=== PATIENT | female | born 1985 | race Caucasian/White ===

== ENCOUNTER 2018-09-08 16:18 | Emergency (ER) | payer OTHER, BC ==
[2018-09-08 16:29] VITALS: BP 102/67
--- NOTE | 2018-09-08 17:12 | EDM.PDOC ---
ED HPI GENERAL MEDICAL PROBLEM - General Chief Complaint: ENT Problem Stated Complaint: DENTAL PAIN Time Seen by Provider: 09/08/18 16:24 Source of Information: Reports: Patient History Limitations: Reports: No Limitations - History of Present Illness INITIAL COMMENTS - FREE TEXT/NARRATIVE: The patient presents with dental pain. This started last night. She was eating [employer] and there was a hard boneless wing that broke her tooth in the left upper jaw. She has sever pain but no fever. She has a history of other teeth being bad but not this one. She does not have a dentist here in town. Onset: Sudden Duration: Day(s): (Last night) Location: Reports: Face Quality: Reports: Sharp Severity: Severe Worsens with: Reports: None Associated Symptoms: Reports: No Other Symptoms Left Upper Tooth/Teeth Pain Score (Numeric/FACES): 9 - Related Data Allergies Allergy/AdvReac Type Severity Reaction Status Date / Time No Known Allergies Allergy Verified 09/08/18 16:24 Home Meds: Home Meds ALPRAZolam [Xanax] 0.5 mg PO DAILY PRN 04/13/18 [History] Escitalopram [Lexapro] 10 mg PO DAILY 09/08/18 [History] Hydrocodone/Acetaminophen [Hydrocodon-Acetaminophen 5-325] 1 - 2 each PO Q6HR PRN #20 tablet 09/08/18 [Rx] Penicillin V Potassium 500 mg PO Q6HR #40 tab 09/08/18 [Rx] Past Medical History HEENT History: Reports: None, Other (See Below) Other HEENT History: wears glasses Cardiovascular History: Reports: None Gastrointestinal History: Reports: Other (See Below) Other Gastrointestinal History: occasional heartburn Genitourinary History: Reports: None 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 Other 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 History: ectopic x2 Musculoskeletal History: Reports: Back Pain, Chronic Neurological History: Reports: Migraines Psychiatric History: Reports: Anxiety Endocrine/Metabolic History: Reports: Obesity/BMI 30+ Hematologic History: Reports: None Immunologic History: Reports: None Oncologic (Cancer) History: Reports: None Dermatologic History: Reports: None - Infectious Disease History Infectious Disease History: Reports: None - Past Surgical History Head Surgeries/Procedures: Reports: None HEENT Surgical History: Reports: None Female Surgical History: Reports: Other (See Below), Salpingo-Oophorectomy Social & Family History - Family History Family Medical History: Noncontributory - Tobacco Use Smoking Status *Q: Current Every Day Smoker Years of Tobacco use: 11 Packs/Tins Daily: 0.5 - Caffeine Use Caffeine Use: Reports: Coffee, Energy Drinks, Soda, Tea - Recreational Drug Use Recreational Drug Use: No ED ROS ENT - Review of Systems Review Of Systems: See Below Constitutional: Reports: No Symptoms HEENT: Reports: Dental Pain Respiratory: Reports: No Symptoms Cardiovascular: Reports: No Symptoms Endocrine: Reports: No Symptoms GI/Abdominal: Reports: No Symptoms : Reports: No Symptoms Musculoskeletal: Reports: No Symptoms ED EXAM, ENT - Physical Exam Exam: See Below Exam Limited By: No Limitations General Appearance: Alert, No Apparent Distress Ears: Normal External Exam Nose: Normal Inspection Mouth/Throat: Other (Fractured 1st molar in the left upper jaw. Pain upon palpation) Head: Atraumatic, Normocephalic Neck: Normal Inspection Respiratory/Chest: No Respiratory Distress Course - Vital Signs Last Recorded V/S: Last Vital Signs Temp 97.5 F 09/08/18 16:20 Pulse 80 09/08/18 16:20 Resp 16 09/08/18 16:20 BP 102/67 09/08/18 16:20 Pulse Ox 97 09/08/18 16:20 Departure - Departure Time of Disposition: 17:10 Disposition: Home, Self-Care 01 Condition: Good Clinical Impression: Pain, dental Tooth fracture Qualifiers: Encounter type: initial encounter Fracture type: closed Qualified Code(s): S02.5XXA - Fracture of tooth (traumatic), initial encounter for closed fracture - Discharge Information *PRESCRIPTION DRUG MONITORING PROGRAM REVIEWED*: No *COPY OF PRESCRIPTION DRUG MONITORING REPORT IN PATIENT MARY: No Prescriptions: Hydrocodone/Acetaminophen [Hydrocodon-Acetaminophen 5-325] 1 - 2 each PO Q6HR PRN #20 tablet PRN Reason: Pain Penicillin V Potassium 500 mg PO Q6HR #40 tab Referrals: Adrianne Grewal MD [Primary Care Provider] - Additional Instructions: Take the medication as prescribed. Follow up with a dentist as soon as you can. Please return if you are worse.
== END 2018-09-08 17:25 | disposition home or self-care (01) ==
LOC: JD.ED 16:18
DX: S02.5XXA Fracture of tooth (traumatic), initial encounter for closed fracture (principal); F17.210 Nicotine dependence, cigarettes, uncomplicated; F41.9 Anxiety disorder, unspecified; Z79.899 Other long term (current) drug therapy; X58.XXXA Exposure to other specified factors, initial encounter
CPT/HCPCS: 99282; 99283

== ENCOUNTER 2018-12-21 09:03 | Day surgery (SDC) | payer BC, OTHER ==
[~2018-12-21 09:03] MED LIST: Lidocaine 1%/Sod Bicarbonate in NS 8.4% 1 ML Syringe IDERM PRN; Sodium Chloride 0.9% 10 ML Syringe FLUSH PRN
[2018-12-21] MEDS ORDERED: Propofol 200 MG/20 ML SDV ONE (09:21)
[2018-12-21] MEDS ORDERED: Lidocaine 1% 2 ML ONE ×2 (09:21)
[2018-12-21] MEDS ORDERED: fentaNYL 250 MCG/5 ML SDV ONE (09:23)
[2018-12-21] MEDS ORDERED: Midazolam 1 MG/ML 2 ML SDV ONE (09:29)
[2018-12-21] MEDS: Lactated Ringers 1,000 ML IV SCH ×2 (09:36→13:18)
--- NOTE | 2018-12-21 10:15 | PCM.PREANE ---
Preanesthetic Assessment - Anesthesia/Transfusion/Family Hx Anesthesia History: Prior Anesthesia Without Reaction Family History of Anesthesia Reaction: No Transfusion History: No Prior Transfusion(s) Intubation History: Unknown - Review of Systems General: No Symptoms Pulmonary: No Symptoms Cardiovascular: No Symptoms Gastrointestinal: No Symptoms Neurological: No Symptoms Other: Reports: None - Physical Assessment NPO Status Date: 12/20/18 NPO Status Time: 23:55 Vital Signs: Last Vital Signs Temp 36.7 C 12/21/18 09:14 Pulse 74 12/21/18 09:14 Resp 17 12/21/18 09:14 BP 113/77 12/21/18 09:14 Pulse Ox 98 12/21/18 09:14 Height: 1.73 m Weight: 94.9 kg ASA Class: 2 Mental Status: Alert & Oriented x3 Airway Class: Mallampati = 2 Dentition: Reports: Normal Dentition Thyro-Mental Finger Breadths: 3 Mouth Opening Finger Breadths: 3 ROM/Head Extension: Full Lungs: Clear to Auscultation, Normal Respiratory Effort Cardiovascular: Regular Rate, Regular Rhythm - Lab Values: Laboratory Last Values Urine Color Yellow (Yellow) 12/21/18 09:16 Urine Appearance Clear (Clear) 12/21/18 09:16 Urine pH 5.5 (5.0-8.0) 12/21/18 09:16 Ur Specific [place] 1.020 (1.005-1.030) 12/21/18 09:16 Urine Protein Negative (Negative) 12/21/18 09:16 Urine Glucose (UA) Negative (Negative) 12/21/18 09:16 Urine Ketones Negative (Negative) 12/21/18 09:16 Urine Occult Blood 2+ (Negative) H 12/21/18 09:16 Urine Nitrite Negative (Negative) 12/21/18 09:16 Urine Bilirubin Negative (Negative) 12/21/18 09:16 Urine Urobilinogen 0.2 (0.2-1.0) 12/21/18 09:16 Ur Leukocyte Esterase Trace (Negative) H 12/21/18 09:16 Urine HCG, Qual Negative (NEGATIVE) 12/21/18 09:16 - Allergies Allergies/Adverse Reactions: Allergies Allergy/AdvReac Type Severity Reaction Status Date / Time No Known Allergies Allergy Verified 12/20/18 10:24 - Acknowledgements Anesthesia Type Planned: General Anesthesia Pt an Appropriate Candidate for the Planned Anesthesia: Yes Alternatives and Risks of Anesthesia Discussed w Pt/Guardian: Yes Pt/Guardian Understands and Agrees with Anesthesia Plan: Yes PreAnesthesia Questionnaire HEENT History: Reports: Impaired Vision Other HEENT History: wears glasses Cardiovascular History: Reports: None Respiratory History: Reports: None Gastrointestinal History: Reports: Other (See Below) Other Gastrointestinal History: occasional heartburn, abdominal pain, bloating, acute colitis Genitourinary History: Reports: Other (See Below) 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 History: Reports: Ectopic , 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, Other (See Below) 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: ectopic x2, laparoscopy x 3, abnormal uterine bleeding, bacterial vaginosis, infertility, ovarian cyst, pelvic pain, uterine fibroid, right salpingectomy Musculoskeletal History: Reports: Back Pain, Chronic, Osteoarthritis Neurological History: Reports: Migraines Other Neuro History: osteoarthritis of spine Psychiatric History: Reports: Anxiety, Depression Endocrine/Metabolic History: Reports: Obesity/BMI 30+ Hematologic History: Reports: None Immunologic History: Reports: None Oncologic (Cancer) History: Reports: None Dermatologic History: Reports: None - Infectious Disease History Infectious Disease History: Reports: None - Past Surgical History Head Surgeries/Procedures: Reports: None HEENT Surgical History: Reports: None Cardiovascular Surgical History: Reports: None Respiratory Surgical History: Reports: None GI Surgical History: Reports: Colonoscopy Female Surgical History: Reports: Endometrial Ablation, Other (See Below) Other Female Surgeries/Procedures: laparoscopic exc of ectopic & rt salpingectomy, hx of removalof tubal Endocrine Surgical History: Reports: None Musculoskeletal Surgical History: Reports: None Dermatological Surgical History: Reports: None - SUBSTANCE USE Smoking Status *Q: Current Every Day Smoker Recreational Drug Use History: No - HOME MEDS Home Medications: Home Meds ALPRAZolam [Xanax] 0.5 mg PO DAILY PRN 04/13/18 [History] Naratriptan HCl 2.5 mg PO ASDIRECTED PRN 11/01/18 [History] hydrOXYzine pamoate [Hydroxyzine Pamoate] 25 mg PO BEDTIME PRN 11/01/18 [History ] Hydrocodone/Acetaminophen [[place] 5-325 Tablet] 1 - 2 each PO Q6H PRN #30 tablet 11/28/18 [Rx] Escitalopram [Lexapro] 20 mg PO DAILY 12/20/18 [History] - CURRENT (IN HOUSE) MEDS Current Meds: Current Medications Lactated Ringer's (Ringers, Lactated) 1,000 mls @ 125 mls/hr IV ASDIRECTED TALON Lidocaine/Sodium Bicarbonate (Buffered Lidocaine 1% In Ns 8.4%) 0.25 ml IDERM ONETIME PRN PRN Reason: Prior to IV Start Sodium Chloride (Saline Flush) 10 ml FLUSH ASDIRECTED PRN PRN Reason: Keep Vein Open Discontinued Medications Bupivacaine HCl (Marcaine 0.5%) Confirm Administered Dose 30 ml .ROUTE .STK-MED ONE Stop: 12/21/18 09:41 Fentanyl (Sublimaze) Confirm Administered Dose 250 mcg .ROUTE .STK-MED ONE Stop: 12/21/18 09:24 Lidocaine HCl (Xylocaine-Mpf 1%) Confirm Administered Dose 2 mls @ as directed .ROUTE .STK-MED ONE Stop: 12/21/18 09:22 Lidocaine HCl (Xylocaine-Mpf 1%) Confirm Administered Dose 2 mls @ as directed .ROUTE .STK-MED ONE Stop: 12/21/18 09:22 Lidocaine/Epinephrine (Xylocaine 1% With Epinephrine 1:100,000) Confirm Administered Dose 20 ml .ROUTE .STK-MED ONE Stop: 12/21/18 09:41 Midazolam HCl (Versed 1 Mg/Ml) Confirm Administered Dose 2 mg .ROUTE .STK-MED ONE Stop: 12/21/18 09:30 Propofol (Diprivan 20 Ml) Confirm Administered Dose 200 mg .ROUTE .STK-MED ONE Stop: 12/21/18 09:22 Sodium Chloride (Normal Saline) Confirm Administered Dose 50 ml .ROUTE .STK-MED ONE Stop: 12/21/18 09:41
[2018-12-21] MEDS ORDERED: diphenhydrAMINE 50 MG/ML SDV IVPUSH PRN (10:51)
[2018-12-21] MEDS ORDERED: fentaNYL 100 MCG/2 ML SDV IVPUSH PRN (10:51)
[2018-12-21] MEDS ORDERED: Ondansetron 4 MG/2 ML SDV IVPUSH PRN (10:51)
[2018-12-21] MEDS ORDERED: HYDROmorphone 0.5 MG/0.5 ML Syringe IVPUSH PRN (10:51)
[2018-12-21] MEDS: Bupivacaine 0.5% 30 ML SDV ONE ×2 (11:03→12:17)
[2018-12-21] MEDS ORDERED: fentaNYL 100 MCG/2 ML SDV ONE ×2 (11:08→11:40)
[2018-12-21] MEDS ORDERED: HYDROmorphone 0.5 MG/0.5 ML Syringe ONE ×2 (11:08→11:22)
[2018-12-21] MEDS: Lidocaine 1% with EPINEPHrine 1:100,000 20 ML MDV ONE ×2 (11:21→11:30)
[2018-12-21] MEDS: Sodium Chloride 0.9% 50 ML SDV ONE ×2 (11:22→11:30)
[2018-12-21] MEDS ORDERED: Ondansetron 4 MG/2 ML SDV ONE (11:41)
[2018-12-21] MEDS ORDERED: Neostigmine Methylsulfate 1 MG/ML 5 ML Syringe ONE (11:59)
[2018-12-21] MEDS ORDERED: Lactated Ringers 1,000 ML ONE (12:21)
--- NOTE | 2018-12-21 12:35 | PCM.POSTAN ---
POST ANESTHESIA ASSESSMENT - MENTAL STATUS Mental Status: Alert, Oriented - VITAL SIGNS Vital Signs: Last Vital Signs Temp 36.7 C 12/21/18 09:14 Pulse 74 12/21/18 09:14 Resp 17 12/21/18 09:14 BP 113/77 12/21/18 09:14 Pulse Ox 98 12/21/18 09:14 - RESPIRATORY Respiratory Status: Respiratory Rate WNL, Airway Patent, O2 Saturation Stable - CARDIOVASCULAR CV Status: Pulse Rate WNL, Blood Pressure Stable - GASTROINTESTINAL GI Status: No Symptoms - PAIN Pain Score: 3 - POST OP HYDRATION Hydration Status: Adequate & Stable
[2018-12-21] MEDS: fentaNYL 100 MCG/2 ML SDV IVPUSH PRN ×3 (12:48→13:14)
[2018-12-21] MEDS: HYDROmorphone 0.5 MG/0.5 ML Syringe IVPUSH PRN ×2 (12:55→13:12)
--- NOTE | 2018-12-21 13:30 | PCM48HPAN ---
Post Anesthesia Note - EVALUATION WITHIN 48HRS OF ANESTHETIC Vital Signs in Normal Range: Yes Patient Participated in Evaluation: Yes Respiratory Function Stable: Yes Airway Patent: Yes Cardiovascular Function Stable: Yes Hydration Status Stable: Yes Pain Control Satisfactory: Yes Nausea and Vomiting Control Satisfactory: Yes Mental Status Recovered: Yes Vital Signs: Last Vital Signs Temp 36.3 C 12/21/18 13:15 Pulse 53 L 12/21/18 13:15 Resp 13 12/21/18 13:15 BP 105/72 12/21/18 13:15 Pulse Ox 99 12/21/18 13:26
[2018-12-21] MEDS ORDERED: Acetaminophen/oxyCODONE 325-5 MG Tab PO PRN (13:54)
[2018-12-21 15:29] VITALS: PULSE 59
--- NOTE | 2018-12-21 15:45 | PCM.OPNOTE ---
- General Post-Op/Procedure Note Date of Surgery/Procedure: 12/21/18 Operative Procedure(s): Laparoscopic-assisted vaginal hysterectomy and bilateral salpingo-oophorectomy Findings: Grossly normal-appearing bilateral ovaries. Uterus overall normal in appearance with a fundal fibroid measuring approximately 5 x 3 cm. Remainder of the uterus was overall normal. Left fallopian tube overall normal in appearance with several areas of dilation and suspected to be due to previous ectopic salpingostomy procedure. Right fallopian tube with excision of the distal fallopian tube and fimbria. Posterior cul-de-sac with small amount of adhesions and suspected clear endometriosis cysts present. Liver, gallbladder and visualized portions of the intestines were normal in appearance. Appendix was normal in appearance. Pre Op Diagnosis: Female pelvic pain and endometriosis Post-Op Diagnosis: Same Anesthesia Technique: General ET Tube Primary Surgeon: Pierce Perez Anesthesia Provider: Tamra Huffman Cardiology Physician Assistant: Sharath Thompson Cardiology Physician Assistant: Hayley Cueto Reason Cardiology Physician Assistant Was Necessary: Patient safety and reduction of morbidity and mortality Role of Cardiology Physician Assistant: Use of laparoscopic instruments for the case and retraction for visualization Pathology: Uterus, bilateral fallopian tubes and ovaries. Posterior cul-de-sac peritoneal biopsy. Fluid Replacement, Intraop: 1,700 Output, Urine Amount: 100 EBL in mLs: 50 Complications: None Condition: Good Free Text/Narrative:: Intake & Output 12/21/18 12/21/18 12/21/18 06:59 14:59 22:59 Intake Total 350 400 Output Total 100 Balance 250 400 The patient was seen in the preoperative holding area and risks, benefits, indications, and alternatives of the procedure were reviewed with the patient and she desired to proceed with a laparoscopic assisted vaginal hysterectomy, bilateral salpingectomy, possible bilateral salpingo-oophorectomy and possible total abdominal hysterectomy. Consents were reviewed. The patient was taken back to the OR and given general anesthesia with an endotracheal tube which was placed without difficulty. She was placed in dorsal lithotomy position using Yellofin stirrups. She was prepped and draped in normal sterile fashion. A Laureano catheter was placed without difficulty. Attention was then turned to her umbilicus where a previous laparoscopic scar was visualized. This was injected with 0.5% Marcaine and a 5 mm stab incision was made with a scalpel and a Veress needle was then inserted through the incision. The gas was turned on, with an opening pressure of 6 mmHg. Pneumoperitoneum was continued until 15 mmHg pressure. A 5 mm trocar was then inserted under direct visualization through the incision without difficulty. Attention was then turned to the patient's right lower quadrant where an avascular space approximately mcfp between the ASIS and the umbilicus was identified. Local anesthetic was injected and a 5 mm incision was made with a scalpel. A 5 mm trocar was then inserted under direct visualization of the laparoscope. Attention was then turned to the left lower quadrant, where again an avascular portion of the abdominal wall was identified approximately mcfp between the ASIS and the umbilicus. Local anesthetic was injected and a scalpel was used to make a 5 mm incision. A 5 mm trocar was inserted under direct visualization with the laparoscope. Attention was then turned to the pelvis where the uterus was visualized and noted be overall normal in appearance except for a fundal fibroid measuring approximately 5 x 3 cm. The ovaries appeared normal bilaterally. The left fallopian tube was grossly normal except for a small portion of dilation where there is suspected be previous salpingostomy procedure performed. The right distal fallopian tube was surgically absent from the mid ampullary portion to the fimbria. The atraumatic grasper was then removed from the right lower trocar and a Enseal vessel sealing device was introduced and was used to cauterize and transect the right infundibulopelvic ligament and ovarian artery. The mesosalpinx was then cauterized and transected using the Enseal vessel sealing device to the level of the uterus. The right round ligament was then transected using the Enseal vessel sealing device. The right side of the uterus and broad ligament were then transected using the Enseal vessel sealing device until the level of the uterovesical peritoneal reflection. A bladder flap was then created using the Enseal vessel sealing device. There is noted to be several small clear cysts in the posterior cul-de-sac at this time and a biopsy of one of the cysts was obtained. This was repeated on the patient's left side. An Enseal vessel sealing device was used to cauterize and transect the left infundibulopelvic ligament and ovarian artery. The mesosalpinx was then cauterized and transected using the Enseal vessel sealing device to the level of the uterus. The left round ligament was then transected using the Enseal vessel sealing device. The left round ligament was transected using Enseal vessel sealing device and the broad ligament was transected to the level of the uterovesical peritoneal reflection. The pelvis was then inspected for hemostasis at this time and hemostasis was noted. All instruments were removed from the abdomen. Attention was then turned to the patient's perineum where a weighted speculum was placed into the vagina and a Waldo retractor was used to visualize the cervix. The cervix was grasped with a double-tooth tenaculum. The cervical reflection point was then injected circumferentially with 0.25% lidocaine with epinephrine. The cervix was then circumferentially incised with a scalpel. The bladder was then dissected off the pubovesical cervical fascia anteriorly with Metzenbaum scissors. The same procedure was performed posteriorly and the posterior cul-de-sac was entered sharply without difficulty using Metzenbaum scissors. The anterior cul-de-sac was dissected off of the cervix and the peritoneum was visualized. This was incised using Metzenbaum scissors. The Sincere retractor was able to be inserted into the anterior cul-de-sac. At this point, an Enseal vessel sealing device was placed over the uterosacral ligaments on the patient's left side. These were cauterized and ligated with the device. This was repeated on the patient's right side. Hemostasis was assured. The cardinal ligaments were then clamped on both sides using the Enseal vessel sealing device, cauterized and transected with the device. The uterine artery on the patient's right side side and the remainder of the broad ligament were then serially clamped with the Enseal vessel sealing device, cauterized and transected with the device. Excellent hemostasis was noted. The cervix and uterus was able to be delivered at this time. The posterior vaginal cuff was closed with running locked sutures of 0 Monocryl. The vaginal cuff was then closed in a horizontal fashion using interrupted [id number] sutures with 0 Monocryl suture. All instruments were removed from the vagina. Attention was then turned to the abdomen where a laparoscope was inserted and was used to check for hemostasis. Hemostasis was noted at this time. The case was complete at this time. The gas was then evacuated from the peritoneum and trocars removed. These were closed using 4-0 Monocryl suture and Dermabond. The patient was awoken from general anesthesia and taken to the PACU for recovery in stable condition. She will be discharged to home once she is able to meet all postoperative milestones including tolerating small amount of oral intake and liquids, ambulate without difficulty, her pain controlled with oral medications and able to void without difficulty. She will follow-up in the clinic in 2 weeks or earlier as needed. Sponge, lap, needle, and instrument counts were correct x 2. Review of images from case IMG 001: Right upper abdomen with visualized portion of the liver and gallbladder normal in appearance. IMG 002: Upper abdomen on the left side with normal-appearing vaginal portion of the liver and intestines. IMG 003: Normal-appearing left fallopian tube grossly normal in appearance with small dilated portion near the uterine fundus suspected to be previous salpingostomy surgical site. Grossly normal-appearing left ovary. Uterus grossly normal in appearance with fundal fibroid measuring approximately 3 x 5 cm. IMG 004: Additional review of the uterine fundus with fibroid that was grossly normal in appearance. Uterine fibroid measuring approximately 3 x 5 cm. Right ovary grossly normal in appearance. IMG 005: Right ovary grossly normal in appearance. Right fallopian tube with previous surgical strand section site noted. IMG 006: Postoperative pelvic view of the surgical site that was hemostatic. IMG 007: Normal appearance of the appendix. IMG 008: Right pelvic sidewall with hemostasis noted IMG 009: Left pelvic sidewall with hemostasis noted
[2018-12-21 15:58] VITALS: BP 102/61
== END 2018-12-21 15:52 | disposition home or self-care (01) ==
LOC: JD.SDS 09:03
PROVIDERS: ATTEND Obstetrics & Gynecology
DX: D25.1 Intramural leiomyoma of uterus (principal); N72 Inflammatory disease of cervix uteri; N87.9 Dysplasia of cervix uteri, unspecified; N83.12 Corpus luteum cyst of left ovary; N83.11 Corpus luteum cyst of right ovary; N83.292 Other ovarian cyst, left side; N73.6 Female pelvic peritoneal adhesions (postinfective); N83.6 Hematosalpinx; N80.9 Endometriosis, unspecified; K65.9 Peritonitis, unspecified; F41.9 Anxiety disorder, unspecified; F32.9 Major depressive disorder, single episode, unspecified; F17.210 Nicotine dependence, cigarettes, uncomplicated; G43.009 Migraine without aura, not intractable, without status migrainosus; E66.9 Obesity, unspecified; M47.9 Spondylosis, unspecified; M51.26 Other intervertebral disc displacement, lumbar region; Z68.31 Body mass index [BMI] 31.0-31.9, adult; Z79.899 Other long term (current) drug therapy
CPT/HCPCS: 36415; 58552; 81001; 81025; 86850; 86900; 86901; A9270; J1170; J2001; J2250; J2405; J2704; J2710; J3010; J3490; J7120; 00944

== ENCOUNTER 2018-12-23 15:36 | Emergency (ER) | payer BC | END 2018-12-23 16:09 | disposition left against medical advice (07) | LOC: JD.ED 15:36 | DX: Z53.21 Procedure and treatment not carried out due to patient leaving prior to being seen by health care provider (principal) ==

== ENCOUNTER 2019-03-27 17:43 | Emergency (ER) | payer BC ==
[2019-03-27 17:59] VITALS: BP 102/64; PULSE 78
[2019-03-27] MEDS ORDERED: Morphine 4 MG/ML Syringe IVPUSH ONE (18:04)
[2019-03-27] MEDS ORDERED: Sodium Chloride 0.9% 10 ML Syringe FLUSH PRN (18:04)
[2019-03-27] MEDS ORDERED: Sodium Chloride 0.9% 1,000 ML IV ONE (18:04)
[2019-03-27] MEDS ORDERED: Ondansetron 4 MG/2 ML SDV IVPUSH ONE (18:04)
--- NOTE | 2019-03-27 18:07 | EDM.PDOC ---
ED HPI GENERAL MEDICAL PROBLEM - General Chief Complaint: Abdominal Pain Stated Complaint: LOWER ABD PAIN Time Seen by Provider: 03/27/19 17:58 Source of Information: Reports: Patient History Limitations: Reports: No Limitations - History of Present Illness INITIAL COMMENTS - FREE TEXT/NARRATIVE: Patient's unfortunate 33-year-old female who presents department today with complaint of lower abdominal pain. Patient reports her general health she woke this morning with sharp stabbing type pain in lower abdomen. Patient reports the pain is similar to the pain she had prior to her hysterectomy for endometriosis. Patient porches been nauseous no vomiting no fever no chills no dysuria no frequency no urgency no diarrhea Lower Abdomen Pain Score (Numeric/FACES): 10 - Related Data Allergies Allergy/AdvReac Type Severity Reaction Status Date / Time No Known Allergies Allergy Verified 03/27/19 17:59 Home Meds: Home Meds ALPRAZolam [Xanax] 0.5 mg PO DAILY PRN 04/13/18 [History] Naratriptan HCl 2.5 mg PO ASDIRECTED PRN 11/01/18 [History] hydrOXYzine pamoate [Hydroxyzine Pamoate] 25 mg PO BEDTIME PRN 11/01/18 [History ] Escitalopram [Lexapro] 20 mg PO DAILY 12/20/18 [History] Bethanechol Chloride [Urecholine] 10 mg PO Q6H #20 tablet 12/21/18 [Rx] Ondansetron [Zofran ODT] 4 mg PO Q4H PRN #30 tab.dis 12/21/18 [Rx] Past Medical History HEENT History: Reports: Impaired Vision Other HEENT History: wears glasses Cardiovascular History: Reports: None Respiratory History: Reports: None Gastrointestinal History: Reports: Other (See Below) Other Gastrointestinal History: occasional heartburn, abdominal pain, bloating, acute colitis Genitourinary History: Reports: Other (See Below) Other Genitourinary History: OAB 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 , 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, Other (See Below) 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: ectopic x2, laparoscopy x 3, abnormal uterine bleeding, bacterial vaginosis, infertility, ovarian cyst, pelvic pain, uterine fibroid, right salpingectomy Musculoskeletal History: Reports: Back Pain, Chronic, Osteoarthritis Neurological History: Reports: Migraines Other Neuro History: osteoarthritis of spine Psychiatric History: Reports: Anxiety, Depression Endocrine/Metabolic History: Reports: Obesity/BMI 30+ Hematologic History: Reports: None Immunologic History: Reports: None Oncologic (Cancer) History: Reports: None Dermatologic History: Reports: None - Infectious Disease History Infectious Disease History: Reports: None - Past Surgical History Head Surgeries/Procedures: Reports: None HEENT Surgical History: Reports: None Respiratory Surgical History: Reports: None GI Surgical History: Reports: Colonoscopy Female Surgical History: Reports: Endometrial Ablation, Other (See Below) Other Female Surgeries/Procedures: laparoscopic exc of ectopic & rt salpingectomy, hx of removalof tubal Endocrine Surgical History: Reports: None Musculoskeletal Surgical History: Reports: None Dermatological Surgical History: Reports: None Social & Family History - Family History Family Medical History: Noncontributory - Tobacco Use Smoking Status *Q: Current Every Day Smoker Years of Tobacco use: 12 Packs/Tins Daily: 0.5 - Caffeine Use Caffeine Use: Reports: Coffee, Energy Drinks, Soda, Tea - Living Situation & Occupation Living situation: Reports: , with Spouse, with Family (2 kids) Occupation: Unemployed ED ROS GENERAL - Review of Systems Review Of Systems: See Below Constitutional: Denies: Fever, Chills GI/Abdominal: Reports: Abdominal Pain, Nausea. Denies: Bloody Stool, Diarrhea, Decreased Appetite, Difficulty Swallowing, Distension, Flatus, Hematemesis, Hematochezia, Vomiting ED EXAM, GI/ABD - Physical Exam Exam: See Below Exam Limited By: No Limitations General Appearance: Alert, WD/WN, Mild Distress Throat/Mouth: Normal Inspection, Normal Lips, Normal Teeth, Normal Gums, Normal Oropharynx, Normal Voice, No Airway Compromise Head: Atraumatic, Normocephalic Neck: Normal Inspection, Supple, Non-Tender, Full Range of Motion Respiratory/Chest: No Respiratory Distress, Lungs Clear, Normal Breath Sounds, No Accessory Muscle Use, Chest Non-Tender Cardiovascular: Normal Peripheral Pulses, Regular Rate, Rhythm, No Edema, No Gallop, No JVD, No Murmur, No Rub GI/Abdominal Exam: Normal Bowel Sounds, Soft, Tender (Mild tenderness suprapubic and left lower quadrant). No: Abnormal Bowel Sounds Back Exam: Normal Inspection, Full Range of Motion, NT Extremities: Normal Inspection, Normal Range of Motion, Non-Tender, Normal Capillary Refill, No Pedal Edema Neurological: Alert Skin Exam: Warm, Dry, No Rash Course - Vital Signs Last Recorded V/S: Last Vital Signs Temp 98.8 F 03/27/19 17:57 Pulse 78 03/27/19 17:57 Resp 16 03/27/19 17:57 BP 102/64 03/27/19 17:57 Pulse Ox 99 03/27/19 17:57 - Orders/Labs/Meds Orders: Active Orders 24 hr Category Date Time Status UA W/MICROSCOPIC [URIN] Stat Lab 03/27/19 20:00 Results Sodium Chloride 0.9% [Saline Flush] Med 03/27/19 19:00 Active 10 ml FLUSH ASDIRECTED Sodium Chloride 0.9% [Saline Flush] Med 03/27/19 18:04 Active 10 ml FLUSH ASDIRECTED PRN Saline Lock Insert [OM.PC] Stat Oth 03/27/19 18:04 Ordered Medication Orders Sodium Chloride (Saline Flush) 10 ml FLUSH ASDIRECTED PRN PRN Reason: Keep Vein Open Last Admin: 03/27/19 18:42 Dose: 10 ml Sodium Chloride (Saline Flush) 10 ml FLUSH ASDIRECTED TALON Last Admin: 03/27/19 20:03 Dose: 10 ml Labs: Laboratory Tests 03/27/19 03/27/19 03/27/19 Range/Units 18:20 18:20 20:00 WBC 5.83 (3.98-10.04) K/mm3 RBC 4.35 (3.98-5.22) M/mm3 Hgb 13.6 (11.2-15.7) gm/dl Hct 41.5 (34.1-44.9) % MCV 95.4 H (79.4-94.8) fl MCH 31.3 (25.6-32.2) pg MCHC 32.8 (32.2-35.5) g/dl RDW Std Deviation 45.6 (36.4-46.3) fL Plt Count 193 (182-369) K/mm3 MPV 11.0 (9.4-12.3) fl Neut % (Auto) 53.9 (34.0-71.1) % Lymph % (Auto) 37.7 (19.3-51.7) % [place] % (Auto) 5.7 (4.7-12.5) % Eos % (Auto) 2.2 (0.7-5.8) Baso % (Auto) 0.5 (0.1-1.2) % Neut # (Auto) 3.14 (1.56-6.13) K/mm3 Lymph # (Auto) 2.20 (1.18-3.74) K/mm3 [place] # (Auto) 0.33 (0.24-0.36) K/mm3 Eos # (Auto) 0.13 (0.04-0.36) K/mm3 Baso # (Auto) 0.03 (0.01-0.08) K/mm3 Sodium 142 (136-145) mEq/L Potassium 4.1 (3.5-5.1) mEq/L Chloride 110 H (98-107) mEq/L Carbon Dioxide 25 (21-32) mEq/L Anion Gap 11.1 (5-15) BUN 13 (7-18) mg/dL Creatinine 1.0 (0.55-1.02) mg/dL Est Cr Clr Drug Dosing 84.41 mL/min Estimated GFR (MDRD) > 60 (>60) mL/min BUN/Creatinine Ratio 13.0 L (14-18) Glucose 96 (74-106) mg/dL Calcium 9.1 (8.5-10.1) mg/dL Total Bilirubin 0.2 (0.2-1.0) mg/dL AST 14 L (15-37) U/L ALT 22 (14-59) U/L Alkaline Phosphatase 75 (46-116) U/L Total Protein 7.4 (6.4-8.2) g/dl Albumin 3.7 (3.4-5.0) g/dl Globulin 3.7 gm/dL Albumin/Globulin Ratio 1.0 (1-2) Lipase 129 (73-393) U/L Urine Color Yellow (Yellow) Urine Appearance Clear (Clear) Urine pH 6.0 (5.0-8.0) Ur Specific [place] 1.025 (1.005-1.030) Urine Protein Negative (Negative) Urine Glucose (UA) Negative (Negative) Urine Ketones Negative (Negative) Urine Occult Blood 1+ H (Negative) Urine Nitrite Negative (Negative) Urine Bilirubin Negative (Negative) Urine Urobilinogen 0.2 (0.2-1.0) Ur Leukocyte Esterase Negative (Negative) Meds: Medications Generic Name Dose Route Start Last Admin Trade Name Freq PRN Reason Stop Dose Admin Sodium Chloride 10 ml 03/27/19 18:04 03/27/19 18:42 Saline Flush FLUSH 10 ml ASDIRECTED PRN Administration Keep Vein Open Sodium Chloride 10 ml 03/27/19 19:00 03/27/19 20:03 Saline Flush FLUSH 10 ml ASDIRECTED TALON Administration Discontinued Medications Generic Name Dose Route Start Last Admin Trade Name Freq PRN Reason Stop Dose Admin Diatrizoate Meglum/Diatrizoate Sod 120 ml 03/27/19 18:49 03/27/19 20:03 Gastrografin 37% PO 03/27/19 18:50 120 ml ONETIME ONE Administration Sodium Chloride 1,000 mls @ 1,000 mls/hr 03/27/19 18:04 03/27/19 18:36 Normal Saline IV 03/27/19 19:03 1,000 mls/hr ONETIME ONE Administration Iopamidol 100 ml 03/27/19 18:49 03/27/19 20:03 Isovue-300 (61%) IVPUSH 03/27/19 18:50 100 ml ONETIME ONE Administration Morphine Sulfate 4 mg 03/27/19 18:04 03/27/19 18:40 Morphine IVPUSH 03/27/19 18:05 4 mg ONETIME ONE Administration Ondansetron HCl 4 mg 03/27/19 18:04 03/27/19 18:38 Zofran IVPUSH 03/27/19 18:05 4 mg ONETIME ONE Administration - Re-Assessments/Exams Free Text/Narrative Re-Assessment/Exam: 03/27/19 20:40 CT abdomen and pelvis shows "impression: #1 slight increase in stool within the right colon. #2 other normal findings as noted above. Nothing acute is appreciated." Departure - Departure Time of Disposition: 20:46 Disposition: Home, Self-Care 01 Clinical Impression: Abdominal cramps Abdominal pain Qualifiers: Abdominal location: generalized Qualified Code(s): R10.84 - Generalized abdominal pain Constipation Qualifiers: Constipation type: unspecified constipation type Qualified Code(s): K59.00 - Constipation, unspecified - Discharge Information Referrals: Adrianne Grewal MD [Primary Care Provider] - Forms: ED Department Discharge Additional Instructions: Home, rest, adequate fluids, return as needed for worsening condition Sepsis Event Note - Evaluation Sepsis Screening Result: No Definite Risk - Focused Exam Vital Signs: Vital Signs Temp Pulse Resp BP Pulse Ox 03/27/19 17:57 98.8 F 78 16 102/64 99 Date Exam was Performed: 03/27/19 Time Exam was Performed: 20:46 - My Orders Last 24 Hours: My Active Orders 03/27/19 18:04 Sodium Chloride 0.9% [Saline Flush] 10 ml FLUSH ASDIRECTED PRN Saline Lock Insert [OM.PC] Stat 03/27/19 19:00 Sodium Chloride 0.9% [Saline Flush] 10 ml FLUSH ASDIRECTED 03/27/19 20:00 UA W/MICROSCOPIC [URIN] Stat - Assessment/Plan Last 24 Hours: My Active Orders 03/27/19 18:04 Sodium Chloride 0.9% [Saline Flush] 10 ml FLUSH ASDIRECTED PRN Saline Lock Insert [OM.PC] Stat 03/27/19 19:00 Sodium Chloride 0.9% [Saline Flush] 10 ml FLUSH ASDIRECTED 03/27/19 20:00 UA W/MICROSCOPIC [URIN] Stat
[2019-03-27] MEDS ORDERED: Diatrizoate Meglumine/Diatrizoate Sodium 37% 120 ML Bottle PO ONE (18:49)
[2019-03-27] MEDS ORDERED: Iopamidol 612 MG/ML 100 ML Bottle IVPUSH ONE (18:49)
[2019-03-27] MEDS ORDERED: Sodium Chloride 0.9% 10 ML Syringe FLUSH SCH (19:00)
--- NOTE | 2019-03-27 20:26 | CT ---
CT abdomen and pelvis Technique: Multiple axial sections were obtained from above the dome of the diaphragm inferiorly through the pubic symphysis. Intravenous and oral contrast was utilized. Delayed images were obtained through the bladder. Comparison: Previous abdominal and pelvic CT study of 10/25/18. Findings: Visualized lung bases show nothing acute. Liver and spleen shows no focal abnormality. Gallbladder contains no calcified gallstones. Adrenal glands show no nodule. Pancreas appears within normal limits. Kidneys show symmetric contrast enhancement without hydronephrosis or mass. Aorta shows no aneurysm. Appendix is seen which is normal in size. No retroperitoneal adenopathy is seen. Aorta shows no aneurysm. No mesenteric abnormalities are seen. No pelvic mass or adenopathy is noted. Delayed images shows contrast within distal ureters and bladder. No free fluid or inflammatory change is seen. Slight increased stool is noted within the right colon. Bone window settings were reviewed which appear within normal limits for the patient's age. Impression: 1. Slight increased within the right colon. 2. Other normal findings as noted above. Nothing acute is appreciated. Diagnostic code #2 This report was dictated in [place] Standard Time
== END 2019-03-27 20:57 | disposition home or self-care (01) ==
LOC: JD.ED 17:43
DX: K59.00 Constipation, unspecified (principal); R10.84 Generalized abdominal pain; F17.210 Nicotine dependence, cigarettes, uncomplicated; F41.9 Anxiety disorder, unspecified; F32.9 Major depressive disorder, single episode, unspecified; E66.9 Obesity, unspecified; Z68.31 Body mass index [BMI] 31.0-31.9, adult; Z79.899 Other long term (current) drug therapy
CPT/HCPCS: 36415; 74177; 80053; 81001; 83690; 85025; 96361; 96374; 96375; 99284; J2270; J2405; J7030; Q9963; Q9967; 99283

== ENCOUNTER 2019-04-05 20:45 | Emergency (ER) | payer BC ==
[2019-04-05 20:57] VITALS: BP 149/101; PULSE 93
[2019-04-05] MEDS ORDERED: Alum Hydrox/Mag Hydrox/Simeth 30 ML, Lidocaine 2% 15 ML PO ONE ×2 (22:02)
[2019-04-05] MEDS ORDERED: Hyoscyamine 0.125 MG Tab.SL SL ONE (22:02)
--- NOTE | 2019-04-05 22:25 | EDM.PDOC ---
ED HPI GENERAL MEDICAL PROBLEM - General Chief Complaint: Chest Pain Stated Complaint: CHEST PAIN Time Seen by Provider: 04/05/19 22:01 Source of Information: Reports: Patient, RN Notes Reviewed History Limitations: Reports: No Limitations - History of Present Illness INITIAL COMMENTS - FREE TEXT/NARRATIVE: Patient is a 33-year-old female who presents to the ED for the evaluation of mid chest pain. Patient notes that the pain started last night after she had dinner, she states that they had leftovers from [place] which consisted of prime rib, and mashed potatoes. Patient took some Tums last night, and she says that did not really help much, so she went to bed. She woke up with the pain still present. She notes today she has been trying to take Tums, Rolaids, Zantac and nothing seem to be helping. She states that the pain is sharp, and feels like an ice pick, she does not really notice anything that makes it worse , she is does state however that when she sits forward it makes it feel better. She denies any fevers or chills, shortness of breath, however she states is hard to take a deep breath due to the pain. She has no nausea/vomiting/ diarrhea or pain lower in her abdomen. She is not having any problems with urination. Patient states that she had been told she had issues with gallstones at one time, but nothing was ever done about this. She notes she is a smoker as well, half pack per day for 15 years. Patient does note that she ate [employer] for a meal today as well, but she cannot correlate if this made the pain worse, because the pain was present before she ate [employer]. Middle Chest Pain Score (Numeric/FACES): 5 - Related Data Allergies Allergy/AdvReac Type Severity Reaction Status Date / Time No Known Allergies Allergy Verified 04/05/19 20:57 Home Meds: Home Meds Naratriptan HCl 2.5 mg PO ASDIRECTED PRN 11/01/18 [History] Escitalopram [Lexapro] 20 mg PO DAILY 12/20/18 [History] Estradiol [Estrace] 1 mg PO DAILY 04/05/19 [History] LORazepam [Ativan] 1 mg PO TID PRN #12 tab 04/05/19 [Rx] traZODone HCl [Trazodone HCl] 100 mg PO BEDTIME 04/05/19 [History] Past Medical History HEENT History: Reports: Impaired Vision Other HEENT History: wears glasses Gastrointestinal History: Reports: Cholelithiasis (was told she had gallstones) , Other (See Below) Other Gastrointestinal History: occasional heartburn, abdominal pain, bloating, acute colitis Genitourinary History: Reports: Other (See Below) Other Genitourinary History: OAB 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 , 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, Other (See Below) 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: ectopic x2, laparoscopy x 3, abnormal uterine bleeding, bacterial vaginosis, infertility, ovarian cyst, pelvic pain, uterine fibroid, right salpingectomy Musculoskeletal History: Reports: Back Pain, Chronic, Osteoarthritis Neurological History: Reports: Migraines Other Neuro History: osteoarthritis of spine Psychiatric History: Reports: Anxiety, Depression Endocrine/Metabolic History: Reports: Obesity/BMI 30+ - Past Surgical History GI Surgical History: Reports: Colonoscopy Female Surgical History: Reports: Endometrial Ablation, Hysterectomy, Other ( See Below) Other Female Surgeries/Procedures: laparoscopic exc of ectopic & rt salpingectomy, hx of removal of tubal x2 Social & Family History - Family History Family Medical History: Noncontributory - Tobacco Use Smoking Status *Q: Current Every Day Smoker Tobacco Use Within Last Twelve Months: Cigarettes Years of Tobacco use: 14 Packs/Tins Daily: 0.5 - Caffeine Use Caffeine Use: Reports: None - Recreational Drug Use Recreational Drug Use: No - Living Situation & Occupation Living situation: Reports: , with Spouse, with Family (2 kids) Occupation: Unemployed ED ROS GENERAL - Review of Systems Review Of Systems: See Below Constitutional: Denies: Fever, Chills, Decreased Appetite, Weight Loss Respiratory: Reports: Shortness of Breath (d/t RUQ abd pain). Denies: Cough Cardiovascular: Denies: Chest Pain GI/Abdominal: Reports: Abdominal Pain (epigastric RUQ abd pain with radiation to back). Denies: Constipation, Diarrhea, Decreased Appetite, Nausea, Vomiting : Denies: Dysuria, Frequency, Urgency ED EXAM, GENERAL - Physical Exam Exam: See Below Exam Limited By: No Limitations General Appearance: Alert, WD/WN, No Apparent Distress (pt is taking shallow frequent breaths at time of exam.) Eye Exam: Bilateral Eye: EOMI, Normal Inspection, PERRL Throat/Mouth: Normal Inspection, Normal Lips, Normal Teeth, Normal Gums, Normal Oropharynx, Normal Voice, No Airway Compromise Head: Atraumatic, Normocephalic Neck: Normal Inspection Respiratory/Chest: No Respiratory Distress, Lungs Clear, Normal Breath Sounds, No Accessory Muscle Use, Chest Non-Tender Cardiovascular: Normal Peripheral Pulses, Regular Rate, Rhythm, No Murmur GI/Abdominal: Normal Bowel Sounds, Soft, No Distention, No Mass, Tender (over epigastrium and RUQ, Leone sign positive) Extremities: Normal Inspection, Normal Capillary Refill Neurological: Alert, Oriented, Normal Cognition, No Motor/Sensory Deficits Psychiatric: Normal Affect, Normal Mood Skin Exam: Warm, Dry, Intact, Normal Color, No Rash Course - Vital Signs Last Recorded V/S: Last Vital Signs Temp 98.3 F 04/05/19 20:54 Pulse 93 04/05/19 20:54 Resp 20 04/05/19 20:54 BP 149/101 H 04/05/19 20:54 Pulse Ox 99 04/05/19 20:54 - Orders/Labs/Meds Labs: Laboratory Tests 04/05/19 04/05/19 Range/Units 22:20 22:20 WBC 7.09 (3.98-10.04) K/mm3 RBC 4.31 (3.98-5.22) M/mm3 Hgb 13.5 (11.2-15.7) gm/dl Hct 41.3 (34.1-44.9) % MCV 95.8 H (79.4-94.8) fl MCH 31.3 (25.6-32.2) pg MCHC 32.7 (32.2-35.5) g/dl RDW Std Deviation 45.3 (36.4-46.3) fL Plt Count 225 (182-369) K/mm3 MPV 10.7 (9.4-12.3) fl Neut % (Auto) 46.3 (34.0-71.1) % Lymph % (Auto) 44.4 (19.3-51.7) % [place] % (Auto) 5.9 (4.7-12.5) % Eos % (Auto) 2.7 (0.7-5.8) Baso % (Auto) 0.6 (0.1-1.2) % Neut # (Auto) 3.28 (1.56-6.13) K/mm3 Lymph # (Auto) 3.15 (1.18-3.74) K/mm3 [place] # (Auto) 0.42 H (0.24-0.36) K/mm3 Eos # (Auto) 0.19 (0.04-0.36) K/mm3 Baso # (Auto) 0.04 (0.01-0.08) K/mm3 Sodium 143 (136-145) mEq/L Potassium 4.3 (3.5-5.1) mEq/L Chloride 108 H (98-107) mEq/L Carbon Dioxide 27 (21-32) mEq/L Anion Gap 12.3 (5-15) BUN 14 (7-18) mg/dL Creatinine 0.9 (0.55-1.02) mg/dL Est Cr Clr Drug Dosing 93.78 mL/min Estimated GFR (MDRD) > 60 (>60) mL/min BUN/Creatinine Ratio 15.6 (14-18) Glucose 101 (74-106) mg/dL Calcium 8.8 (8.5-10.1) mg/dL Total Bilirubin 0.1 L (0.2-1.0) mg/dL GGT 19 (5-55) U/L AST 9 L (15-37) U/L ALT 19 (14-59) U/L Alkaline Phosphatase 81 (46-116) U/L C-Reactive Protein < 0.2 (<1.0) mg/dL Total Protein 6.9 (6.4-8.2) g/dl Albumin 3.5 (3.4-5.0) g/dl Globulin 3.4 gm/dL Albumin/Globulin Ratio 1.0 (1-2) Lipase 210 (73-393) U/L Meds: Medications Discontinued Medications Generic Name Dose Route Start Last Admin Trade Name Freq PRN Reason Stop Dose Admin Al Hydroxide/Mg Hydroxide 30 0 ml 04/05/19 22:02 04/05/19 22:15 ml/ Lidocaine HCl 15 ml PO 04/05/19 22:03 45 ml ONETIME ONE Administration Hyoscyamine 0.125 mg 04/05/19 22:02 04/05/19 22:14 Hyomax-Sl SL 04/05/19 22:03 0.125 mg ONETIME ONE Administration Lorazepam 1 mg 04/05/19 22:59 04/05/19 23:08 Ativan IM 04/05/19 23:00 1 mg ONETIME ONE Administration - Re-Assessments/Exams Free Text/Narrative Re-Assessment/Exam: 04/05/19 22:27 Patient presents to the ED for evaluation of epigastric/right upper quadrant pain. I do believe this pain to have a gallbladder etiology. Will gather some labs, to rule out any sort of cholecystitis. If labs are nonfocal, will send the patient home with gallbladder ultrasound and have her follow-up with her primary care provider. 04/05/19 22:55 Labs are done and demonstrate no focal abnormalities. We will discharge the patient home with the general plan if her pain was relieved by the Levsin and GI cocktail. 04/05/19 22:59 She was reassessed at bedside, and states that her pain is not much better, she still breathing and shallow breaths. I have ordered 1 mg IM Ativan for further management, as I believe part of her symptoms might be due to anxiety. Labs are nonfocal and demonstrate no sign of bacterial infection. Again her pain could be gallbladder in etiology, without infection. Departure - Departure Time of Disposition: 23:13 Disposition: Home, Self-Care 01 Condition: Fair Clinical Impression: History of cholelithiasis Abdominal pain Qualifiers: Abdominal location: right upper quadrant Qualified Code(s): R10.11 - Right upper quadrant pain Prescriptions: LORazepam [Ativan] 1 mg PO TID PRN #12 tab PRN Reason: Muscle Spasm Instructions: Gallbladder Eating Plan Referrals: Adrianne Grewal MD [Primary Care Provider] - Forms: ED Department Discharge Additional Instructions: You were evaluated in the ED today for your mid to right upper abdominal pain. This is most likely due to gallstones, your laboratory evaluation done today demonstrates that there is no acute infection of the gallbladder. You were given a outpatient order for a gallbladder ultrasound and HIDA scan to further evaluate the gallbladder. Our radiology department will call you to schedule this appointment, likely sometime early next week. You will need to follow-up with Adrianne Grewal for results of this. You were given a prescription for Ativan, this is an anti-anxiety type medication. Please take 1 mg up to 3 times daily as needed for further pain symptoms. You may also try to take 500 mg Tylenol or 600 mg ibuprofen every 6 hours as needed for initial pain relief, and reserve the stronger pain meds for pain not relieved by Tylenol or ibuprofen alone. Please return to ER at any time if your symptoms change or worsen. Sepsis Event Note - Evaluation Sepsis Screening Result: No Definite Risk - Focused Exam Vital Signs: Vital Signs Temp Pulse Resp BP Pulse Ox 04/05/19 20:54 98.3 F 93 20 149/101 H 99 Date Exam was Performed: 04/05/19 Time Exam was Performed: 23:22
[2019-04-05] MEDS ORDERED: LORazepam 2 MG/ML SDV IM ONE (22:59)
== END 2019-04-05 23:35 | disposition home or self-care (01) ==
LOC: JD.ED 20:45
DX: R10.11 Right upper quadrant pain (principal); Z87.19 Personal history of other diseases of the digestive system; M19.90 Unspecified osteoarthritis, unspecified site; F41.9 Anxiety disorder, unspecified; F32.9 Major depressive disorder, single episode, unspecified; E66.9 Obesity, unspecified; Z68.31 Body mass index [BMI] 31.0-31.9, adult; F17.210 Nicotine dependence, cigarettes, uncomplicated; Z79.899 Other long term (current) drug therapy
CPT/HCPCS: 36415; 80053; 82977; 83690; 85025; 86140; 96372; 99284; A9270; J2060

== ENCOUNTER 2019-07-14 16:30 | Emergency (ER) | payer BC ==
[2019-07-14 16:50] VITALS: BP 114/81; PULSE 100
--- NOTE | 2019-07-14 17:46 | EDM.PDOC ---
ED HPI GENERAL MEDICAL PROBLEM - General Chief Complaint: Lower Extremity Injury/Pain Stated Complaint: RT FOOT AND ANKLE INJURY Time Seen by Provider: 07/14/19 16:49 Source of Information: Reports: Patient History Limitations: Reports: No Limitations - History of Present Illness INITIAL COMMENTS - FREE TEXT/NARRATIVE: Patient is a 33-year-old female who presents with complaints of right foot pain and swelling. She states that she misstepped this morning and fell down approximately 2 stairs. She did not hit her head. Since that time she has had pain and swelling to the dorsal lateral aspect of her right foot. She has not been able to bear weight on the extremity. She denies any history of previous injuries to this extremity. Right Foot Pain Score (Numeric/FACES): 6 - Related Data Allergies Allergy/AdvReac Type Severity Reaction Status Date / Time No Known Allergies Allergy Verified 07/14/19 16:46 Home Meds: Home Meds Naratriptan HCl 2.5 mg PO ASDIRECTED PRN 11/01/18 [History] Escitalopram [Lexapro] 20 mg PO DAILY 12/20/18 [History] Estradiol [Estrace] 1 mg PO DAILY 04/05/19 [History] Past Medical History HEENT History: Reports: Impaired Vision Other HEENT History: wears glasses Cardiovascular History: Reports: None Respiratory History: Reports: None Gastrointestinal History: Reports: Cholelithiasis, Other (See Below) Other Gastrointestinal History: occasional heartburn, abdominal pain, bloating, acute colitis Genitourinary History: Reports: Other (See Below) Other Genitourinary History: [employer]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 , 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, Other (See Below) 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: ectopic x2, laparoscopy x 3, abnormal uterine bleeding, bacterial vaginosis, infertility, ovarian cyst, pelvic pain, uterine fibroid, right salpingectomy Musculoskeletal History: Reports: Back Pain, Chronic, Osteoarthritis Neurological History: Reports: Migraines Other Neuro History: osteoarthritis of spine Psychiatric History: Reports: Anxiety, Depression Endocrine/Metabolic History: Reports: Obesity/BMI 30+ Hematologic History: Reports: None Immunologic History: Reports: None Oncologic (Cancer) History: Reports: None Dermatologic History: Reports: None - Infectious Disease History Infectious Disease History: Reports: None - Past Surgical History Head Surgeries/Procedures: Reports: None Respiratory Surgical History: Reports: None GI Surgical History: Reports: Colonoscopy Female Surgical History: Reports: Endometrial Ablation, Hysterectomy, Other ( See Below) Other Female Surgeries/Procedures: laparoscopic exc of ectopic & rt salpingectomy, hx of removal of tubal x2 Dermatological Surgical History: Reports: None Social & Family History - Family History Family Medical History: Noncontributory - Tobacco Use Smoking Status *Q: Current Every Day Smoker Years of Tobacco use: 10 Packs/Tins Daily: 0.5 - Caffeine Use Caffeine Use: Reports: None - Recreational Drug Use Recreational Drug Use: No - Living Situation & Occupation Living situation: Reports: , with Spouse, with Family (2 kids) Occupation: Unemployed Review of Systems - Review of Systems Review Of Systems: Comprehensive ROS is negative, except as noted in HPI. ED EXAM, GENERAL - Physical Exam Exam: See Below Exam Limited By: No Limitations General Appearance: Alert, WD/WN, No Apparent Distress Respiratory/Chest: No Respiratory Distress, Lungs Clear, Normal Breath Sounds, No Accessory Muscle Use, Chest Non-Tender Cardiovascular: Normal Peripheral Pulses, Regular Rate, Rhythm, No Edema, No Gallop, No JVD, No Murmur, No Rub Extremities: Other (Swelling and ecchymosis to the dorsal lateral aspect of the right foot over the fifth metatarsal. CMS intact distal to the injury.) Neurological: Alert, Oriented, CN II-XII Intact, Normal Cognition, Normal Gait, Normal Reflexes, No Motor/Sensory Deficits Psychiatric: Normal Affect, Normal Mood Skin Exam: Warm, Dry, Intact, Normal Color, No Rash Course - Vital Signs Last Recorded V/S: Last Vital Signs Temp 97.7 F 07/14/19 16:41 Pulse 100 07/14/19 16:41 Resp 18 07/14/19 16:41 BP 114/81 07/14/19 16:41 Pulse Ox 96 07/14/19 16:41 - Orders/Labs/Meds Orders: Active Orders 24 hr Category Date Time Status Foot Comp Min 3V Rt [CR] Stat Exams 07/14/19 17:01 Taken DME for Discharge [COMM] Routine Oth 07/14/19 17:41 Ordered - Re-Assessments/Exams Free Text/Narrative Re-Assessment/Exam: 07/14/19 17:42 X-ray shows a nondisplaced fracture of the proximal fifth metatarsal. Patient will be placed in a walking boot with instructions for non weight bearing until seen by orthopedics. she states that she has crutches so she does not need the provided today. [facility]. discharge instructions as documented. Departure - Departure Time of Disposition: 17:44 Disposition: Home, Self-Care 01 Condition: Fair Clinical Impression: Metatarsal fracture Qualifiers: Encounter type: initial encounter Metatarsal bone: fifth Fracture type: closed Fracture alignment: nondisplaced Laterality: right Qualified Code(s): S92.354A - Nondisplaced fracture of fifth metatarsal bone, right foot, initial encounter for closed fracture - Discharge Information *PRESCRIPTION DRUG MONITORING PROGRAM REVIEWED*: Yes *COPY OF PRESCRIPTION DRUG MONITORING REPORT IN PATIENT MARY: No Instructions: Metatarsal Fracture With Rehab-SportsMed Referrals: Adrianne Grewal MD [Primary Care Provider] - Vincent Yee MD [Physician] - Additional Instructions: You were seen in the emergency department today for pain and swelling to your right foot after falling down the stairs. X-ray does show that you have a nondisplaced fracture of the fifth metatarsal. You have been placed in a walking boot. Recommend nonweightbearing with crutches until cleared by orthopedics. You may open the boot and ice over the area of injury intermittently for 20 minutes at a time. Recommend that you elevate the extremity when at rest. You may use Tylenol or ibuprofen as needed for pain. For pain not relieved by these measures, you have been provided a prescription for Cha[place]. Do not drive for at least 12 hours after taking this medication as it can be sedating. Recommend that you call tomorrow morning to schedule an appointment with Dr. Yee, orthopedist. The number to schedule with him as listed below. Return to ER as needed. Sepsis Event Note - Evaluation Sepsis Screening Result: No Definite Risk - Focused Exam Vital Signs: Vital Signs Temp Pulse Resp BP Pulse Ox 07/14/19 16:41 97.7 F 100 18 114/81 96 Date Exam was Performed: 07/14/19 Time Exam was Performed: 17:41 - My Orders Last 24 Hours: My Active Orders 07/14/19 17:01 Foot Comp Min 3V Rt [CR] Stat 07/14/19 17:41 DME for Discharge [COMM] Routine - Assessment/Plan Last 24 Hours: My Active Orders 07/14/19 17:01 Foot Comp Min 3V Rt [CR] Stat 07/14/19 17:41 DME for Discharge [COMM] Routine
--- NOTE | 2019-07-14 18:01 | CR ---
Right foot: 4 views of the right foot were obtained. Comparison: No previous foot study. Nondisplaced fracture is noted within the base of the 5th metatarsal. Slight bunion deformity is present. No additional fracture or other bony abnormality is appreciated. Impression: 1. Nondisplaced fracture involving the base of the right 5th metatarsal. 2. Mild bunion deformity. Diagnostic code #3 This report was dictated in MDT
== END 2019-07-14 17:55 | disposition home or self-care (01) ==
LOC: JD.ED 16:30
DX: S92.354A Nondisplaced fracture of fifth metatarsal bone, right foot, initial encounter for closed fracture (principal); F41.9 Anxiety disorder, unspecified; F32.9 Major depressive disorder, single episode, unspecified; E66.9 Obesity, unspecified; Z68.31 Body mass index [BMI] 31.0-31.9, adult; F17.210 Nicotine dependence, cigarettes, uncomplicated; Z79.899 Other long term (current) drug therapy; W10.8XXA Fall (on) (from) other stairs and steps, initial encounter
CPT/HCPCS: 73630-26-RT; 73630-RT; 99283

== ENCOUNTER 2020-01-12 00:38 | Emergency (ER) | payer BC ==
[2020-01-12 00:59] VITALS: BP 140/76; PULSE 74
[2020-01-12] MEDS ORDERED: Hydrocortisone/Neomycin/Polymyxin B Otic Susp 10 ML Bottle EARLF ONE (01:16)
--- NOTE | 2020-01-12 01:41 | EDM.PDOC ---
ED HPI GENERAL MEDICAL PROBLEM - General Chief Complaint: ENT Problem Stated Complaint: left ear pain Time Seen by Provider: 01/12/20 00:59 Source of Information: Reports: Patient History Limitations: Reports: No Limitations - History of Present Illness INITIAL COMMENTS - FREE TEXT/NARRATIVE: This is a 34-year-old female. She has been having left-sided ear pain for the last 2 days. The last time she cleaned her ears was 2 days ago with Q-tips. She states she is having some clear drainage from that left ear and she is having a hard time hearing out of it. Because of the intense pain of that left ear she is not been able to sleep and she comes to the ER for evaluation. She denies any trauma to the ear she denies any fever or chills denies any other acute symptoms. Left Ear Pain Score (Numeric/FACES): 8 - Related Data Allergies Allergy/AdvReac Type Severity Reaction Status Date / Time No Known Allergies Allergy Verified 01/12/20 00:59 Home Meds: Home Meds Naratriptan HCl 2.5 mg PO ASDIRECTED PRN 11/01/18 [History] Escitalopram [Lexapro] 20 mg PO DAILY 12/20/18 [History] estradioL [Estrace] 1 mg PO DAILY 04/05/19 [History] Acetaminophen/HYDROcodone [[place] 325-5 MG] 1 tab PO Q6H PRN #10 tablet 01/12/20 [Rx] Ciprofloxacin [Ciprofloxacin HCl] 500 mg PO BID #10 tab 01/12/20 [Rx] Past Medical History HEENT History: Reports: Impaired Vision Other HEENT History: wears glasses Cardiovascular History: Reports: None Respiratory History: Reports: None Gastrointestinal History: Reports: Cholelithiasis, Other (See Below) Other Gastrointestinal History: occasional heartburn, abdominal pain, bloating, acute colitis Genitourinary History: Reports: Other (See Below) Other Genitourinary History: [employer]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: Ectopic , 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, Other (See Below) 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: ectopic x2, laparoscopy x 3, abnormal uterine bleeding, bacterial vaginosis, infertility, ovarian cyst, pelvic pain, uterine fibroid, right salpingectomy Musculoskeletal History: Reports: Back Pain, Chronic, Osteoarthritis Neurological History: Reports: Migraines Other Neuro History: osteoarthritis of spine Psychiatric History: Reports: Anxiety, Depression Endocrine/Metabolic History: Reports: Obesity/BMI 30+ Hematologic History: Reports: None Immunologic History: Reports: None Oncologic (Cancer) History: Reports: None Dermatologic History: Reports: None - Infectious Disease History Infectious Disease History: Reports: None - Past Surgical History Head Surgeries/Procedures: Reports: None Respiratory Surgical History: Reports: None GI Surgical History: Reports: Colonoscopy Female Surgical History: Reports: Endometrial Ablation, Hysterectomy, Other (See Below) Other Female Surgeries/Procedures: laparoscopic exc of ectopic & rt salpingectomy, hx of removal of tubal x2 Dermatological Surgical History: Reports: None Social & Family History - Family History Family Medical History: Noncontributory - Tobacco Use Smoking Status *Q: Current Every Day Smoker Years of Tobacco use: 15 Packs/Tins Daily: 0.5 Used Tobacco, but Quit: No - Caffeine Use Caffeine Use: Reports: Coffee, Soda - Recreational Drug Use Recreational Drug Use: No - Living Situation & Occupation Living situation: Reports: , with Spouse, with Family (2 kids) Occupation: Unemployed ED ROS ENT - Review of Systems Review Of Systems: See Below Constitutional: Denies: Fever, Chills HEENT: Reports: Ear Discharge, Ear Pain. Denies: Sinus Problem, Throat Pain, Throat Swelling Respiratory: Denies: Shortness of Breath, Cough Cardiovascular: Reports: No Symptoms Endocrine: Reports: No Symptoms GI/Abdominal: Reports: No Symptoms : Reports: No Symptoms Musculoskeletal: Reports: No Symptoms Skin: Reports: No Symptoms Neurological: Reports: No Symptoms Psychiatric: Reports: No Symptoms Hematologic/Lymphatic: Reports: No Symptoms ED EXAM, ENT - Physical Exam Exam: See Below Exam Limited By: No Limitations General Appearance: Alert, WD/WN, Mild Distress Eye Exam: Bilateral Eye: Normal Inspection Ears: Normal External Exam, Other (The left ear canal is swollen and red there is no significant drainage noted. The eardrum is partially seen does not appear to be particularly red or inflamed, the right canal and eardrum are normal.) Nose: Normal Inspection Mouth/Throat: Normal Lips Head: Normocephalic Neck: Supple Respiratory/Chest: No Respiratory Distress Back: Full Range of Motion Extremities: Normal Inspection, Normal Range of Motion Neurological: Alert, Oriented Psychiatric: Normal Affect, Normal Mood Skin: Warm, Dry Course - Vital Signs Last Recorded V/S: Last Vital Signs Temp 96.9 F 10/04/20 00:56 Pulse 74 01/12/20 00:56 Resp 18 01/12/20 00:56 BP 140/76 01/12/20 00:56 Pulse Ox 99 01/12/20 00:56 - Orders/Labs/Meds Meds: Medications Discontinued Medications Generic Name Dose Route Start Last Admin Trade Name Baltazar PRN Reason Stop Dose Admin Neomycin/Polymyxin/Hydrocortisone 1 ml 01/12/20 01:16 01/12/20 01:31 Cortisporin Otic Susp EARLF 01/12/20 01:17 1 ml ONETIME ONE Administration - Re-Assessments/Exams Free Text/Narrative Re-Assessment/Exam: 01/12/20 01:52 [address] an ear wick in the left ear and use some Cortisporin otic solution on the sponge. The patient tolerated this with no difficulty. The bottle was given to the patient and instructions were given on how to put it in her ear with the sponge. Departure - Departure Time of Disposition: 01:52 Disposition: Home, Self-Care 01 Condition: Good Clinical Impression: External otitis of left ear Qualifiers: Otitis externa type: unspecified type Chronicity: acute Qualified Code(s): H60.502 - Unspecified acute noninfective otitis externa, left ear - Discharge Information *PRESCRIPTION DRUG MONITORING PROGRAM REVIEWED*: Not Applicable *COPY OF PRESCRIPTION DRUG MONITORING REPORT IN PATIENT MARY: Not Applicable Prescriptions: Ciprofloxacin [Ciprofloxacin HCl] 500 mg PO BID #10 tab Acetaminophen/HYDROcodone [[place] 325-5 MG] 1 tab PO Q6H PRN #10 tablet PRN Reason: Pain Instructions: Otitis Externa, [id number] Referrals: Adrianne Grewal, BRAND ENGINEER [Primary Care Provider] - Forms: ED Department Discharge Additional Instructions: Use the eardrops 2 drops 4 times a day on that sponge that in your ear, once the ear canal shrinks down that sponge will fall out, get your prescriptions filled tomorrow for the antibiotic and the pain medicine, use ice or heat whatever feels better to the ear, do not put Q-tips in your ears anymore to clean them use water with an ear irrigation kit to clean your ears, follow-up with your family doctor this coming week for recheck and return to the ER if needed Sepsis Event Note (ED) - Evaluation Sepsis Screening Result: No Definite Risk - Focused Exam Vital Signs: Vital Signs Temp Pulse Resp BP Pulse Ox 01/12/20 00:56 96.9 F 74 18 140/76 99
== END 2020-01-12 02:05 | disposition home or self-care (01) ==
LOC: JD.ED 00:38
DX: H60.92 Unspecified otitis externa, left ear (principal); E66.9 Obesity, unspecified; F17.210 Nicotine dependence, cigarettes, uncomplicated; F41.9 Anxiety disorder, unspecified; F32.9 Major depressive disorder, single episode, unspecified; Z68.31 Body mass index [BMI] 31.0-31.9, adult; Z79.899 Other long term (current) drug therapy
CPT/HCPCS: 99282; A9270; 99283

== ENCOUNTER 2021-02-18 07:06 | Day surgery (SDC) | payer BC ==
[~2021-02-18 07:06] MED LIST changes: +Lactated Ringers 1,000 ML IV SCH
[2021-02-18] MEDS ORDERED: Propofol 200 MG/20 ML SDV ONE ×2 (07:07→08:11)
[2021-02-18] MEDS ORDERED: fentaNYL 100 MCG/2 ML SDV ONE (07:07)
[2021-02-18] MEDS ORDERED: Lidocaine 1% 4 ML ONE (07:07)
--- NOTE | 2021-02-18 07:27 | PCM.PREANE ---
Preanesthetic Assessment - Anesthesia/Transfusion/Family Hx Anesthesia History: Prior Anesthesia Without Reaction Family History of Anesthesia Reaction: No Transfusion History: No Prior Transfusion(s) Intubation History: Unknown - Review of Systems General: No Symptoms Pulmonary: No Symptoms Cardiovascular: No Symptoms Gastrointestinal: Nausea Neurological: No Symptoms Other: Reports: Thyroid Problems - Physical Assessment NPO Status Date: 02/17/21 NPO Status Time: 23:45 ASA Class: 2 Mental Status: Alert & Oriented x3 Airway Class: Mallampati = 1 Dentition: Reports: Normal Dentition Thyro-Mental Finger Breadths: 3 Mouth Opening Finger Breadths: 3 ROM/Head Extension: Full Lungs: Clear to Auscultation, Normal Respiratory Effort Cardiovascular: Regular Rate, Regular Rhythm - Allergies Allergies/Adverse Reactions: Allergies Allergy/AdvReac Type Severity Reaction Status Date / Time No Known Allergies Allergy Verified 02/17/21 11:30 - Acknowledgements Anesthesia Type Planned: MAC Pt an Appropriate Candidate for the Planned Anesthesia: Yes Alternatives and Risks of Anesthesia Discussed w Pt/Guardian: Yes Pt/Guardian Understands and Agrees with Anesthesia Plan: Yes PreAnesthesia Questionnaire HEENT History: Reports: Impaired Vision Other HEENT History: wears glasses Cardiovascular History: Reports: None Respiratory History: Reports: None Gastrointestinal History: Reports: Cholelithiasis, Other (See Below) Other Gastrointestinal History: occasional heartburn, abdominal pain, bloating, acute colitis Genitourinary History: Reports: Other (See Below) 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 , 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, Other (See Below) 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: ectopic x2, laparoscopy x 3, abnormal uterine bleeding, bacterial vaginosis, infertility, ovarian cyst, pelvic pain, uterine fibroid, right salpingectomy Musculoskeletal History: Reports: Back Pain, Chronic, Osteoarthritis Neurological History: Reports: Migraines, Other (See Below) Other Neuro History: osteoarthritis of spine, bulging lumbar disc Psychiatric History: Reports: Anxiety, Depression Endocrine/Metabolic History: Reports: Hypothyroidism, Obesity/BMI 30+ Hematologic History: Reports: None Immunologic History: Reports: None Oncologic (Cancer) History: Reports: None Dermatologic History: Reports: None - Infectious Disease History Infectious Disease History: Reports: None - Past Surgical History Head Surgeries/Procedures: Reports: None HEENT Surgical History: Reports: Eye Surgery Cardiovascular Surgical History: Reports: None Respiratory Surgical History: Reports: None GI Surgical History: Reports: Colonoscopy Female Surgical History: Reports: Endometrial Ablation, Hysterectomy, Other (See Below) Other Female Surgeries/Procedures: laparoscopic exc of ectopic & rt salpingectomy, hx of removal of tubal x2 Endocrine Surgical History: Reports: None Neurological Surgical History: Reports: None Musculoskeletal Surgical History: Reports: None Dermatological Surgical History: Reports: None - SUBSTANCE USE Tobacco Use Status *Q: Current Every Day Tobacco User Recreational Drug Use History: No - HOME MEDS Home Medications: Home Meds Naratriptan HCl 2.5 mg PO ASDIRECTED PRN 11/01/18 [History] estradioL [Estrace] 1 mg PO QAM 04/05/19 [History] Ondansetron [Zofran ODT] 4 mg PO Q6H PRN 02/17/21 [History] Pantoprazole Sodium [Protonix] 20 mg PO DAILY 02/17/21 [History] estradioL [Estradiol] 0.5 mg PO QPM 02/17/21 [History] - CURRENT (IN HOUSE) MEDS Current Meds: Current Medications Lactated Ringer's (Ringers, Lactated) 1,000 mls @ 125 mls/hr IV ASDIRECTED TALON Stop: 02/18/21 23:00 Lidocaine/Sodium Bicarbonate (Lidocaine 1%/Sod Bicarbonate In Ns 8.4% 1 Ml Syringe) 0.25 ml IDERM ONETIME PRN PRN Reason: Prior to IV Start Stop: 02/18/21 18:00 Sodium Chloride (Sodium Chloride 0.9% 10 Ml Syringe) 10 ml FLUSH ASDIRECTED PRN PRN Reason: Keep Vein Open Stop: 02/18/21 18:00 Discontinued Medications Fentanyl (Fentanyl 100 Mcg/2 Ml Sdv) Confirm Administered Dose 100 mcg .ROUTE .STK-MED ONE Stop: 02/18/21 07:08 Lidocaine HCl (Xylocaine-Mpf 1%) Confirm Administered Dose 4 mls @ as directed .ROUTE .STK-MED ONE Stop: 02/18/21 07:08 Propofol (Propofol 200 Mg/20 Ml Sdv) Confirm Administered Dose 200 mg .ROUTE .STK-MED ONE Stop: 02/18/21 07:08
--- NOTE | 2021-02-18 07:52 | PCM.PRNOTE ---
- Free Text/Narrative Note: Date: 02/18/2021 Procedure: diagnostic esophagogastroduodenoscopy Indication: progressive dysphagia, weight loss History: normal esophagram, no relief with PPI Endoscopist: Christofer Wesley MD Findings: gross inflammatory change in the duodenal bulb, with linear erythematous streaking in the body of the stomach. No hiatal hernia or evidence of esophagitis or metaplasia. Detailed Report: The patient was taken to the endoscopy suite and placed in left lateral decubitus position. Timeout was performed and monitored anesthesia care was initiated. A bite-block was placed. The endoscope was inserted in the mouth and advanced to the duodenum with ease. The mucosa within the duodenal bulb appeared grossly inflamed without evidence of discrete ulceration. The stomach appeared relatively normal without evidence of ulceration. There was minor linear streaking erythema of the body of the stomach. On retroflexion, no hiatal hernia was noted. Biopsies of mucosa from the duodenal bulb, antrum and distal esophagus were obtained with cold forceps. Air was suctioned from the stomach prior to withdrawal of the scope. The patient tolerated the procedure well.
--- NOTE | 2021-02-18 08:32 | PCM48HPAN ---
Post Anesthesia Note - EVALUATION WITHIN 48HRS OF ANESTHETIC Vital Signs in Normal Range: Yes Patient Participated in Evaluation: Yes Respiratory Function Stable: Yes Airway Patent: Yes Cardiovascular Function Stable: Yes Hydration Status Stable: Yes Pain Control Satisfactory: Yes Nausea and Vomiting Control Satisfactory: Yes Mental Status Recovered: Yes
[2021-02-18 08:55] VITALS: BP 92/66; PULSE 63
== END 2021-02-18 08:53 | disposition home or self-care (01) ==
LOC: JD.SDS 07:06
PROVIDERS: ATTEND Surgery
DX: K26.9 Duodenal ulcer, unspecified as acute or chronic, without hemorrhage or perforation (principal); K29.80 Duodenitis without bleeding; R63.4 Abnormal weight loss; K31.89 Other diseases of stomach and duodenum; R13.10 Dysphagia, unspecified; F41.9 Anxiety disorder, unspecified; F32.A Depression, unspecified; G43.909 Migraine, unspecified, not intractable, without status migrainosus; E03.9 Hypothyroidism, unspecified; E66.9 Obesity, unspecified; F17.200 Nicotine dependence, unspecified, uncomplicated; Z68.27 Body mass index [BMI] 27.0-27.9, adult; Z79.899 Other long term (current) drug therapy; Z98.890 Other specified postprocedural states
CPT/HCPCS: 43239; J2704; J3010; J7120; 00731